=== PATIENT | female | born 1990 | race Caucasian/White ===

== ENCOUNTER 2018-06-21 05:48 | Inpatient (IN) ==
[2018-06-21] MEDS ORDERED: CITRIC ACID/SODIUM CITRATE 30 ML CUP PO ONE (05:49)
[2018-06-21] MEDS ORDERED: FAMOTIDINE 20 MG/2 ML VIAL IVP ONE (05:49)
[2018-06-21] MEDS ORDERED: LIDOCAINE W/ SODIUM BICARB 0.5 ML SYR SUBD PRN ×2 (05:49→09:27)
[2018-06-21] MEDS ORDERED: Metoclopramide Inj 10 MG/2 ML VIAL IV ONE (05:49)
[2018-06-21] MEDS ORDERED: CefOXitin Inj 2 GM in Sodium Chloride 0.9% 100 ML IV ONE (05:49)
[2018-06-21] MEDS ORDERED: LIDOCAINE HCL 2 % 10 ML JELLY URO-JECT TOPICAL PRN (05:49)
[2018-06-21] MEDS ORDERED: Oxytocin 20 Units + LR 20 UNIT/1,000 ML BAG IV SCH ×2 (06:00→10:18)
[2018-06-21] MEDS ORDERED: Lactated Ringers 1,000 ML PRIMARY IV SCH (06:00)
[2018-06-21] MEDS: Lactated Ringers 1,000 ML PRIMARY IV ONE ×2 (06:22→06:39)
[2018-06-21 06:27] LABS: Hematocrit [HCT] 39.4 % (37.0-47.0); Hemoglobin [HGB] 13.6 g/dL (12.0-16.0); MEAN CORPUSCULAR HGB CONC 34.5 g/dL (33-37); MEAN PLATELET VOLUME 10.6 FL (7.4-12.2); RED BLOOD COUNT 4.69 10^6/uL (4.20-5.40)
[2018-06-21 06:33] LABS: BLOOD UREA NITROGEN 7 mg/dL (7-22); SERUM ALBUMIN 3.6 g/dL (3.5-4.8)
--- NOTE | 2018-06-21 07:22 | OB.PROGRES ---
Date of Service: 06/21/18 Interval History: The patient is a 27-year-old at 39-2/7 weeks with a history of polycystic ovarian syndrome and presented at her initial OB with a history of taking metformin 500 mg by mouth twice a day secondary to the history of PCOS. The patient had stopped the metformin about a week and a half prior to her new OB visit. The patient was restarted on the metformin. The patient's glucoses have been fastings less than 95 and 2 hour postprandials 120 to 130 for the most part throughout her . The patient also has a BMI that is increased although the patient is 6 foot tall. The patient also developed proteinuria but only had one blood pressure that was elevated with a diastolic of 90. All other blood pressures have been less than 140/90. The patient has been asymptomatic with regard to preeclampsia with no headache. Antepartum testing has been completed secondary to the patient taking metformin 500 mg twice a day but also the proteinuria . Patient also had polyhydramnios with an EARL of 33. The patient had a normal survey ultrasound at 20 weeks but another survey ultrasound-level II-was completed a few weeks ago by maternal medicine secondary to the hydramnios. No abnormalities were noted. It is thought that the patient' s hydramnios is secondary to the polycystic ovarian syndrome/type II diabetes etiology. Additionally, the patient has had estimated weights in the 98th percentile for several weeks now. Ultrasound last week showed EFW to be 10 lbs. 2 oz. and EARL was 21 at that time which was decreased from 33. Maternal medicine had spoken with the patient informing her that the baby's head circumference and BPD was increased and they were concerned about a vaginal delivery. With the EFW being 10 lbs. 2 oz. the patient has elected to have a primary section which I have discussed with the patient secondary to the estimated weight and the patient's diabetes or glucose intolerance. The patient presents today for a primary low transverse section. Patient denies headache. Positive movement, no leak of fluid, no regular contractions. The consent form had been signed previously. 27-year-old at 7-1/2 weeks gestation by an ultrasound last week which showed an IUP at 6 weeks. The patient has not had bleeding. The patient presents for evaluation for her new OB. The patient has a history of polycystic ovarian syndrome and was taking metformin 500 mg by mouth twice a day and stopped this when she found out she was a week and half ago. Past medical history significant for polycystic ovarian syndrome and insulin resistance but her glucoses were okay. Patient stated that the metformin did help her to lose some weight and to allow her menses to become more regular. Patient has a history of menarche at age 11 and a history of irregular menses until she was placed on metformin. No history of abnormal Pap smears with her last Pap smear several years ago. No STI history. No history of herpes. The patient stated that she stop metformin when she found out she was and has gained about 20 pounds since she stopped the metformin. The patient did notice some hives on her leg last night in her arm. Positive pruritus. No history of hives. Past surgical history significant for tonsillectomy and foot surgery x3 No known drug allergies Tobacco-patient spoke for 3 months but then stopped when she found out she was . Occasional alcohol but none since she found out she was . No drugs. OB history-patient is a now. The patient did not think that she could conceive secondary to her PCO S with irregular menses. Family history with mother having a hysterectomy and BSO at age 38 for precancerous ovarian cysts. Objective - Cervical Exam Heart Rate Interpretation Category: Category I - Labs CBC and BMP: 06/21/18 06:18 06/21/18 06:18 - Vital Signs Last Taken Vital Signs: Vital Signs - Last Taken Temperature 98.0 F 06/21/18 06:25 Pulse Rate 94 06/21/18 06:25 Respiratory Rate 18 06/21/18 06:25 Blood Pressure 126/76 06/21/18 06:56 Pulse Ox 96 06/21/18 06:25 - Additional Details Additional Details: Lungs clear to auscultation Heart regular rate and rhythm Abdomen is gravid with size greater than dates. Extremity with edema bilaterally 1+ to 2+ Reflexes were 1+ to 2+ bilaterally patellar Assessment and Plan - Assessment / Plan Additional Assessment/Plan Details: Assessment: IUP 39-2/7 weeks Estimated weight 10 lbs. 2 oz. Proteinuria with normal blood pressures except for one elevated blood pressure in the emergency room when she was seen for a tooth abscess. Of note, the patient has not seen a dentist since she was seen in the emergency room a few weeks ago. The patient states that her abscess is improved. Glucoses during her have been normal with fastings less than 95 and 2 hour postprandials less than 120 to 130 History of hydramnios with level II ultrasound not revealing a abnormality Morbid obesity with a BMI of 45. The patient is 6 foot tall. History of tobacco use but patient quit. Group B strep was negative Plan: Primary low transverse section secondary to the estimated weight and the patient's diabetes or glucose intolerance from polycystic ovarian syndrome. EFW was 10 lbs. 2 oz. late last week. The risks, benefits, alternatives and indication of a primary low transverse section were discussed with the patient. The risks, but not limited to , of infection, wound infection, wound seroma, the necessity to open the wound and to heal by secondary intention or a wound VAC, bleeding, hemorrhage, uterine atony, the risk of hysterectomy is low but possible if hemorrhage continues to occur secondary to the size of the and the uterus not jose well, postoperative pain or intraoperative pain, damage to bowel, bladder, nerve, vessel, nicking the baby, blood clots to the legs or lungs, the need to transfer the patient to a tertiary care center for severe infection, and the low risk of were all discussed with the patient. The patient expressed understanding. Also the risk of the baby having glucose instability,' s temperature instability or even respiratory issues were discussed with the patient. Pediatrics is aware. The consent form had been signed previously. The risk and benefits were discussed previously but also today. The plan is to proceed with the section.
[2018-06-21] MEDS ORDERED: MORPHINE SULFATE/PF 10 MG/10 ML AMPULE ONE (07:26)
[2018-06-21] MEDS ORDERED: BUPIVACAINE SPINAL 7.5 MG/1 ML - 2 ML IV ONE (07:29)
--- NOTE | 2018-06-21 07:36 | OB.OP.NOTE ---
Operative Report Surgeon: Bennie Tool Smith: Santiago Kwan MD Anesthesia Type: Regional (With Duramorph) Anesthesia Provider: Taj Begum CRNA Surgery Date: 06/21/18 Preoperative Diagnosis: IUP 39-2/7 weeks. Type II diabetes or glucose intolerance & Polycystic ovarian syndrome taking metformin 500 mg twice a day. Hydramnios. Proteinuria . Estimated weight 98 percentile with 10 lbs. 2 oz. last week. Patient desires primary low transverse section and this was also suggested by myself and maternal medicine secondary to EFW Postoperative Diagnosis: Same Procedure: Primary low transverse section Estimated Blood Loss (mL): 800 Fluids: 1800 mL of LR, some with Pitocin. 120 mL of clear yellow urine during the surgery. Mefoxin 2 g IV prior to surgery. Azithromycin 500 mg IV at the end of surgery after cord clamp Complications: None apparent Findings at Surgery: Nuchal cord 2 easily reduced Male infant with Apgars 7 and 8 Weight was 8 lbs. 13 oz. or 4000 g ABG showed a pH of 7.29 PCO2 of 46 HCO3 of 22 and base excess of -5 Normal uterus Ovaries bilaterally showed slightly enlarged, polycystic ovaries Fallopian tubes appeared normal Indications for the Procedure: The patient is a 27-year-old at 39-2/7 weeks with a history of polycystic ovarian syndrome and presented at her initial OB with a history of taking metformin 500 mg by mouth twice a day secondary to the history of PCOS. The patient had stopped the metformin about a week and a half prior to her new OB visit. The patient was restarted on the metformin. The patient's glucoses have been fastings less than 95 and 2 hour postprandials 120 to 130 for the most part throughout her . The patient also has a BMI that is increased although the patient is 6 foot tall. The patient also developed proteinuria but only had one blood pressure that was elevated with a diastolic of 90. All other blood pressures have been less than 140/90. The patient has been asymptomatic with regard to preeclampsia with no headache. Antepartum testing has been completed secondary to the patient taking metformin 500 mg twice a day but also the proteinuria . Patient also had polyhydramnios with an EARL of 33. The patient had a normal survey ultrasound at 20 weeks but another survey ultrasound-level II-was completed a few weeks ago by maternal medicine secondary to the hydramnios. No abnormalities were noted. It is thought that the patient' s hydramnios is secondary to the polycystic ovarian syndrome/type II diabetes etiology. Additionally, the patient has had estimated weights in the 98th percentile for several weeks now. Ultrasound last week showed EFW to be 10 lbs. 2 oz. and EARL was 21 at that time which was decreased from 33. Maternal medicine had spoken with the patient informing her that the baby's head circumference and BPD was increased and they were concerned about a vaginal delivery. With the EFW being 10 lbs. 2 oz. the patient has elected to have a primary section which I have discussed with the patient secondary to the estimated weight and the patient's diabetes or glucose intolerance. The patient presents today for a primary low transverse section. Patient denies headache. Positive movement, no leak of fluid, no regular contractions. The consent form had been signed previously. Description of Procedure: The patient was taken to the operating room after the risks, benefits, alternatives and indication of a primary low transverse section were discussed with the patient. The risks, but not limited to, of infection, wound infection, wound seroma, the necessity to open the wound and to heal by secondary intention or a wound VAC, bleeding, hemorrhage, uterine atony, the risk of hysterectomy is low but possible if hemorrhage continues to occur secondary to the size of the and the uterus not jose well, postoperative pain or intraoperative pain, damage to bowel, bladder, nerve, vessel, nicking the baby, blood clots to the legs or lungs, the need to transfer the patient to a tertiary care center for severe infection, and the low risk of were all discussed with the patient. The patient expressed understanding. Also the risk of the baby having glucose instability,'s temperature instability or even respiratory issues were discussed with the patient. Pediatrics is aware. The consent form had been signed previously. The risk and benefits were discussed previously but also today. SCDs had been placed on the patient prior to bringing her back to the operating room. The patient was prepped and draped in the usual sterile fashion. A Simmons catheter was placed. The patient was tested and anesthesia was found to be very adequate. A Pfannenstiel skin incision was made and the subcutaneous tissue was then incised with the Bovie. Bleeders were cauterized. The fascia was nicked in the midline and then extended laterally incising the fascia with the Bovie and elevating the fascia off the rectus muscles with the Yankauer using it as a gentle retractor. La Rose clamps were placed on the superior aspect of the fascia and then the fascia was dissected off of the rectus muscles using the Bovie and bluntly. Briana clamps were then removed and placed on the inferior aspect of the fascia and the fascia was dissected off of the rectus muscles inferiorly. The rectus muscles were noted to have a diastases. The peritoneum was identified and then entered superiorly bluntly. The peritoneum was then gently stretched. I then placed my hand intra-abdominally and the long the uterus to the fundus to ensure there were no adhesions present. The Soto retractor was then placed in the usual fashion. The lower uterine segment was identified. A low transverse uterine incision was made in an arc above the bladder. The lower uterine incision was continued until membranes were noted. Membranes were ruptured. Fluid was clear. The uterine incision was then stretched. Bandage scissors were used to extend the uterine incision on the right and left side. I then placed my hand intrauterine along the baby's head to the vertex and then delivered the head atraumatically through the uterine incision. Initially the baby's head was asynclitic but with manipulation, the baby's head was mobilized into a good position. Mouth and nose were bulb suctioned. The baby was in the direct OA presentation. Nuchal cord 2 was easily reduced after delivery of the head. With fundal pressure, the posterior shoulder then anterior shoulder of the was delivered atraumatically. The was then delivered. Delayed cord clamping was allowed for for greater than 30 seconds. The cord was then clamped and cut. The baby was handed off to the waiting nurses and Dr. Matos. A section of cord was obtained for cord gases and then cord blood was obtained. The placenta was then delivered. Trailing membranes were grasped with a ring forcep and Sandi's and gently removed. The placenta would be sent secondary to the diabetes and also the hydramnios. The uterus was then exteriorized and cleared of all clot and debris 3. The uterine incision was examined and then closed with 0 Vicryl suture in a running locking fashion. A second imbricating layer of 0 Vicryl suture was used to allow for hemostasis and for strength of the uterine incision for healing. Hemostasis was allowed for. The uterus and ovaries and tubes were examined. They appeared normal. The ovaries did have several small cysts visualized. This is consistent with polycystic ovarian syndrome. Posterior to the uterus was irrigated and suctioned. The uterine incision was examined again and there was good hemostasis. A few areas along the serosa were bovied for hemostasis. The uterus was placed back into the abdomen. The right gutter was irrigated and then suctioned. The left gutter was irrigated and then suctioned. The uterine incision was then irrigated and suctioned and there appeared to be good hemostasis. The peritoneum was then visualized and closed using 3-0 Vicryl suture in a running fashion superior to inferior. The fascia was then inspected and subfascially there was good hemostasis. The fascia was then closed with 0 Vicryl suture in the usual fashion starting on the patient's left side and then working to just past the midline and then from the patient's right side and meeting up with the suture from the left side and just going past it and then tying the 2 sutures together. The subcutaneous tissue was irrigated. A few areas were bovied for hemostasis. The subcutaneous tissue was then closed with 3-0 Vicryl suture in a running fashion. The skin was closed with Stratafix 3-0 which are starting in the midline and working to the right apex of the skin incision and left apex of the skin incision in the usual fashion. Sponge lap and needle counts were correct 2. Radiofrequency wand was then used to ensure that there were no instruments or lap sponges left intra-abdominally. Silverlon dressing was placed over the incision and then ABD had was used and then paper tape. The patient was brought to the PACU in stable condition. Plan: The patient will recover in her room. Secondary to her BMI, SCDs will be continued but I also may prescribe heparin or Lovenox to prevent DVT or PE just in the postoperative time while she is in the hospital. This would be at least 6 hours later.
[2018-06-21] MEDS ORDERED: ePHEDrine Inj 50 MG/ML AMP ONE (07:58)
[2018-06-21] MEDS ORDERED: PHENYLEPHRINE 10,000 MCG/1 ML VIAL ONE (08:04)
[2018-06-21] MEDS ORDERED: Sodium Chloride 0.9% vial 10 ML ONE (08:04)
[2018-06-21] MEDS ORDERED: ONDANSETRON 4 MG/2 ML VIAL ONE (08:09)
[2018-06-21] MEDS ORDERED: OXYTOCIN 10 UNIT/1 ML ONE (08:14)
[2018-06-21] MEDS ORDERED: KETOROLAC 30 MG/1 ML VIAL ONE (08:50)
[2018-06-21] MEDS ORDERED: Sodium Chloride 0.9% 100 ML IV ONE (09:15)
[2018-06-21] MEDS ORDERED: AZITHROMYCIN 500 MG VIAL IV ONE (09:15)
[2018-06-21] MEDS ORDERED: MISOPROSTOL 200 MCG TABLET RECTAL ONE (09:20)
--- NOTE | 2018-06-21 09:26 | CRNA.PROCE ---
Central Neuraxis Block Placemt - - Safety Measures: Time Out Taken - - Type of Block: Subarachnoid Reason for Block: Surgical Moniters Used During Block: EKG, SPO2, NIBP Positioning: Sitting Skin Prep Used: ChloroPrep Skin Infiltration - Enter Amount Used in Comment Field: 1% Xylocaine (mL): Yes ( skin wheal) Spinal Needle Used: 25 Sarah 80 mm Local Anesthetic - Enter Amount Used in Comment Field: 0.75 % Bupivacaine with Dextrose (ml): Yes (2ml) Additive Used - Enter Amount Used in Comment Field: Preservative Free Morphine ( mg): Yes (.3) Anesthesia Time - Other Weight: 149.685 kg Height: 6 ft Body Mass Index (BMI): 44.7
[2018-06-21] MEDS ORDERED: Prochlorperazine Edisylate Inj 10mg/2ml vial IVP PRN (09:27)
[2018-06-21] MEDS ORDERED: HYDROmorphone 2 MG/1 ML IVP PRN (09:27)
--- NOTE | 2018-06-21 09:27 | CRNA.PROGR ---
Anesthesia Time - Procedure/Recovery Time Start Date: 06/21/18 End Date: 06/21/18 Anesthesia : Time In: 07:48 Anesthesia : Time Out: 09:21 Anesthesia : Total Time: 93 - Total Anesthesia Time Total Anesthesia Time (minutes): 93 - Other Weight: 149.685 kg Height: 6 ft Body Mass Index (BMI): 44.7 Physical Status: P2 Anesthesia Type: Spinal Block Obstetrics: C/S anesthesia only
--- NOTE | 2018-06-21 09:27 | CRNA.PROGR ---
Anesthesia Recovery Phase I - Post Anesthesia Evaluation Patient's Condition on Arrival in Phase I: Stable Pain Level: 0
[2018-06-21] MEDS ORDERED: BUTORPHANOL TARTRATE 2 MG/1 ML VIAL IVP ONE (09:28)
[2018-06-21] MEDS ORDERED: AZITHROMYCIN IV ONE (09:34)
[2018-06-21] MEDS ORDERED: SODIUM CHLORIDE 0.9% IV ONE (09:34)
[2018-06-21] MEDS ORDERED: CALCIUM CARBONATE 500 MG (TUMS) CHEWABLE TABLET PO PRN (10:18)
[2018-06-21] MEDS ORDERED: diphenhydrAMINE 25 MG CAPSULE PO PRN (10:18)
[2018-06-21] MEDS ORDERED: ONDANSETRON 4 MG/2 ML VIAL IVP PRN (10:18)
[2018-06-21] MEDS ORDERED: DIPH,PERTUSS,TET(ADACEL) VAC/PF 0.5 ML (Tdap) IM ONE (10:18)
[2018-06-21] MEDS ORDERED: BUTORPHANOL TARTRATE 2 MG/1 ML VIAL IVP PRN (10:18)
[2018-06-21] MEDS ORDERED: Nalbuphine Inj 20 MG/ML Ampule IVP PRN (10:18)
[2018-06-21] MEDS ORDERED: diphenhydrAMINE 50 MG/1 ML VIAL IV PRN (10:18)
[2018-06-21] MEDS ORDERED: FAMOTIDINE 20 MG/2 ML VIAL IVP PRN (10:18)
[2018-06-21] MEDS ORDERED: LANOLIN HPA 40 GM TUBE TOPICAL PRN (10:18)
[2018-06-21] MEDS ORDERED: KETOROLAC 15 MG/1 ML VIAL IVP SCH (10:18)
[2018-06-21] MEDS ORDERED: Naloxone Inj 0.01 MG, Sodium Chloride 0.9% vial 1 ML IVP PRN ×2 (10:18)
[2018-06-21] MEDS: KETOROLAC 15 MG/1 ML VIAL IVP SCH ×2 (15:00→20:47)
[2018-06-21] MEDS: D5-LR 1,000 ML PRIMARY IV SCH (16:21)
[2018-06-22] MEDS: KETOROLAC 15 MG/1 ML VIAL IVP SCH ×2 (02:42→09:29)
[2018-06-22 05:01] LABS: Hematocrit [HCT] 30.9 % (37.0-47.0); Hemoglobin [HGB] 10.3 g/dL (12.0-16.0); MEAN CORPUSCULAR HEMOGLOBIN 29.1 PG (27-31); MEAN CORPUSCULAR HGB CONC 33.3 g/dL (33-37); MEAN CORPUSCULAR VOLUME 87.3 FL (81-99); MEAN PLATELET VOLUME 10.7 FL (7.4-12.2); RED BLOOD COUNT 3.54 10^6/uL (4.20-5.40)
[2018-06-22 05:07] LABS: BLOOD UREA NITROGEN 9 mg/dL (7-22); SERUM ALBUMIN 2.5 g/dL (3.5-4.8); Uric Acid 5.7 mg/dl (2.5-6.2)
[2018-06-22] MEDS: D5-LR 1,000 ML PRIMARY IV SCH (06:10)
[2018-06-22] MEDS: ENOXAPARIN SODIUM 40 MG/0.4 ML SYRINGE SUBCUT SCH (07:42)
--- NOTE | 2018-06-22 08:32 | OB.PROGRES ---
Subjective Post Day: 1 Pain Management: IV Toradol Simmons Catheter: Yes Lochia Color: Rubra/Red Small 10-25 ml Diet: Regular Feeding Method: Exculsively Ambulating: Yes Concerns / Additional Information: The patient states that she is doing well. Positive flatus. Mom is breast- feeding exclusively currently. Her babies glucoses are much improved. Patient is tolerating a regular diet. Objective - General General Appearance: POSITIVE: No Acute Distress, Cooperative - Cardiovacular Cardiovascular Exam: POSITIVE: RRR Edema: +1 Pedal Edema Extremities: Negative Adore's - Bilaterally - Respiratory Respiratory Exam: POSITIVE: Clear to Auscultation - Bilaterally - Abdomen Bowel Sounds: Present Abdominal Wound Assessment: Silverlone Dressing Other Abdominal Exam Details: Abdomen is soft and appropriately tender. No guarding or rebound. Assesstment / Plan Assessment / Plan: Assessment: Postoperative day #1 status post primary low transverse section. Patient is doing well. Labs are normal. H&H is 10 and 30. Glucose this morning was 88. History of polycystic ovarian syndrome with patient taking that form and 500 mg twice a day for insulin resistance. Patient did not receive dose of metformin last night and glucose good this morning. 88. History of proteinuria and hydramnios. Blood pressures are normal. Patient also afebrile. Baby's weight was 8 lbs. 13 oz. and initially had some low glucoses but now glucoses have normalized. Plan: Patient received DVT prophylactic dose of Lovenox-40 mg subcutaneous-this morning since BMI is greater than 40. Patient is 6 foot tall but meets the criteria of BMI greater than 40. I contacted the patient's nurse last evening just 12 hours from surgery and the patient was still having some heavier bleeding. Therefore I did not prescribe the Lovenox last evening at 12 hours postop. I called this morning at 0530 hrs. and the patient's bleeding had improved and normal per nurse. Therefore I prescribed the Lovenox at 0530 hrs. this morning to be given subcutaneously. This will be administered daily. SCDs will also be used when the patient is in bed. Patient will ambulate at least 4 times today. Simmons catheter will be discontinued Continue to observe the patient closely
[2018-06-22] MEDS: Senna/Docusate Tab 1 TAB TAB PO SCH ×2 (09:28→20:40)
[2018-06-22] MEDS: oxyCODONE-ACETAMINOPHEN 5-325 TAB PO PRN ×2 (09:28→15:56)
[2018-06-22] MEDS: Prenatal Multivitamin Tab 1 TAB TAB PO SCH (09:29)
[2018-06-22] MEDS: IBUPROFEN 800 MG TABLET PO PRN ×2 (15:57→22:37)
[2018-06-23] MEDS: oxyCODONE-ACETAMINOPHEN 5-325 TAB PO PRN ×4 (01:12→20:52)
[2018-06-23 06:36] VITALS: RESP 18
[2018-06-23] MEDS: IBUPROFEN 800 MG TABLET PO PRN ×2 (06:37→16:17)
[2018-06-23] MEDS: Prenatal Multivitamin Tab 1 TAB TAB PO SCH (08:19)
[2018-06-23] MEDS: Senna/Docusate Tab 1 TAB TAB PO SCH ×2 (08:19→20:58)
[2018-06-23] MEDS: ENOXAPARIN SODIUM 40 MG/0.4 ML SYRINGE SUBCUT SCH (08:23)
--- NOTE | 2018-06-23 10:56 | OB.PROGRES ---
Subjective Post Day: 2 Pain Management: PO Simmons Catheter: No Flatus: Yes Lochia Color: Serosa/Brown Small 10-25 ml Diet: Regular [place] Feeding Method: Exculsively Ambulating: Yes Concerns / Additional Information: The patient's eats that she thinks she over did it yesterday with not enough pain medication since she was feeling so well and to much activity and today she does not feel as well and hurts more. The patient states that she does not believe that she is getting an infection but just has more pain. No fever or chills. The patient does have some left lower quadrant discomfort in one place and noticed some irritation of her skin where the tape was yesterday. Objective - General General Appearance: POSITIVE: No Acute Distress, Cooperative (Nontoxic appearing ) - Cardiovacular Cardiovascular Exam: POSITIVE: RRR Edema: +1 Pedal Edema Extremities: Negative Adore's - Bilaterally - Respiratory Respiratory Exam: POSITIVE: Clear to Auscultation - Bilaterally - Abdomen Abdominal Wound Assessment: Silverlone Dressing Other Abdominal Exam Details: The patient has some point tenderness in the left lower quadrant where the suture for the fascial angle suture might be. Also there is some skin irritation or ulceration in the right lower quadrant where the paper tape was. This is about 8 mm to 10 mm in size. The patient's abdomen is soft without guarding or rebound. Assesstment / Plan Assessment / Plan: Assessment: Postoperative day #2 status post primary low transverse section The patient is afebrile and pulse is normal and blood pressures are normal. The patient just does not feel as well today as she did yesterday and the patient believes she overdid it. I saw her briefly several times yesterday and she was always up and around and feeling well so she may have overdone it yesterday. The patient is afebrile. The patient's abdominal exam is soft without guarding or rebound. Plan: Ibuprofen 800 mg 3 times a day Oxycodone/Tylenol-the patient is taking 1 tablet every 4 hours. The patient should continue this. I can increase the milligrams dosage of oxycodone but the patient states she does not like the feeling that she gets after she takes the oxycodone. She does not want to take hydrocodone because hydrocodone makes her nauseated. Ambulate just 4 times today. SCDs while she is in in her bed. Continue Lovenox 40 mg once per day Will not discharge patient today. Patient agrees. We'll continue to observe.
[2018-06-23] MEDS ORDERED: AMOXICILLIN 500 MG CAPSULE PO SCH (16:00)
--- NOTE | 2018-06-23 16:12 | OB.PROGRES ---
Subjective Post Day: 2 Assesstment / Plan Assessment / Plan: The patient is doing better this afternoon after she got some sleep. Her pain control is better. However, the patient believes that her tooth abscess is worsening. I placed the patient on Augmentin 875 mg by mouth twice a day and we gave the patient the phone number and address of a walk-in dentist in [place], [place]. The patient needs to see a dentist for evaluation. The patient expressed understanding. Patient is afebrile.
[2018-06-23] MEDS: Amoxicill/Clav 875/125mg Tab 1 TAB TAB PO SCH (16:17)
[2018-06-24] MEDS: IBUPROFEN 800 MG TABLET PO PRN ×2 (00:27→10:04)
[2018-06-24] MEDS: Amoxicill/Clav 875/125mg Tab 1 TAB TAB PO SCH (06:51)
[2018-06-24] MEDS: oxyCODONE-ACETAMINOPHEN 5-325 TAB PO PRN (06:52)
--- NOTE | 2018-06-24 08:00 | OB.PROGRES ---
Subjective Post Day: 3 Pain Management: PO Simmons Catheter: No Flatus: Yes Lochia Color: Serosa/Brown Small 10-25 ml Diet: Regular Feeding Method: Exculsively Ambulating: Yes Concerns / Additional Information: The patient states that she is slightly tired today and still has some pain but is feeling much better than yesterday morning. Patient also states that her tooth is feeling a little bit better now that she was started on antibiotics. The patient also states that she will see a dentist. Objective - General General Appearance: POSITIVE: No Acute Distress, Cooperative - Cardiovacular Cardiovascular Exam: POSITIVE: RRR Edema: +1 Pedal Edema Extremities: Negative Adore's - Bilaterally - Respiratory Respiratory Exam: POSITIVE: Clear to Auscultation - Bilaterally - Abdomen Bowel Sounds: Present Abdominal Wound Assessment: Silverlone Dressing, Well Approximated - Fundus/Lochia/Perineum Other Exam Details: Abdomen is soft without guarding or rebound. The patient does have decreased tenderness in the left lower quadrant compared to yesterday morning. No uterine tenderness. Assesstment / Plan Assessment / Plan: Assessment: Postoperative day #3 status post primary low transverse section. The patient is doing well. Afebrile. Blood pressure is normal. And patient is feeling much better today than she was yesterday morning. The patient states that the pain medicine is helping to control her pain. The patient does have an abdominal pannus and the patient and I have discussed that she is at increased risk for wound issues and for seroma and 4 the possibility of having to open the wound if she develops an infection or a seroma. The patient also probably has a tooth abscess with a fractured tooth. The patient was seen in the emergency room couple weeks ago and was placed on amoxicillin and then I just started her on Augmentin yesterday when the patient started complaining about pain again. Plan: The patient would like to be discharged home today and I believe the patient is doing much better and will go home. The patient was given the phone number and location of a dentist that excepts walkins in [place], [place]. The patient may also see a dentist here in [place], [place]. But, the patient needs to see a dentist. The patient should follow up next week-early next week-for incision check. Discharge medications: Ibuprofen 800 mg 1 tablet by mouth 3 times a day for the next 5 days then 3 times a day as needed. Colace 100 mg capsule 1 capsule daily to twice a day when necessary constipation Ferrous sulfate 325 mg 1 tablet by mouth daily Oxycodone/Tylenol 5/325 one to 2 tablets by mouth every 6 hours when necessary pain #30 were dispensed and no refills Promethazine 25 mg one half tablet to one tablet every 6-8 hours when necessary nausea Usual postoperative instructions will be discussed with the patient and the nurse. depression signs and symptoms will be discussed with the patient by the nurse. The patient should return for fever, increase in abdominal pain, wound drainage , signs or symptoms of depression, or just not feeling well.
[2018-06-24 08:12] VITALS: BP 133/81; TEMP 98; O2SAT 97
--- NOTE | 2018-06-24 09:13 | OB.PROGRES ---
Assesstment / Plan Assessment / Plan: Silverlon dressing was removed. All Steri-Strips removed. Incision was clean and dry. New one half inch Steri-Strips placed. New Silverlon dressing placed.
[2018-06-24] MEDS: Prenatal Multivitamin Tab 1 TAB TAB PO SCH (10:04)
[2018-06-24] MEDS: Senna/Docusate Tab 1 TAB TAB PO SCH (10:05)
[2018-06-24] MEDS: ENOXAPARIN SODIUM 40 MG/0.4 ML SYRINGE SUBCUT SCH (10:17)
== END 2018-06-24 11:52 | disposition home or self-care (01) | DRG 765 ==
LOC: OBOR 05:48 → OBIP 09:50
PROVIDERS: ADMIT Obstetrics & Gynecology; ATTEND Obstetrics & Gynecology

== ENCOUNTER 2019-04-23 09:18 | Observation (INO) ==
[2019-04-23] MEDS ORDERED: Sodium Chloride 0.9% 1,000 ML PRIMARY IV ONE (09:36)
[2019-04-23 09:53] LABS: BASOPHILS # (AUTO) 0.02 10*3/UL; BASOPHILS % (AUTO) 0.3 % (0-1); EOSINOPHILS # (AUTO) 0.17 10*3/UL; EOSINOPHILS % (AUTO) 2.4 % (0-8); Hematocrit [HCT] 45.5 % (37.0-47.0); Hemoglobin [HGB] 15.5 g/dL (12.0-16.0); LYMPHOCYTES # (AUTO) 1.98 10*3/uL; MEAN CORPUSCULAR HGB CONC 34.1 g/dL (33-37); MEAN CORPUSCULAR VOLUME 88.5 FL (81-99); MEAN PLATELET VOLUME 10.4 FL (7.4-12.2); MONOCYTES # (AUTO) 0.36 10*3/UL (0.3-0.8); MONOCYTES % (AUTO) 5.1 % (5-15); NEUTROPHILS # (AUTO) 4.55 10*3/UL; RED BLOOD COUNT 5.14 10^6/uL (4.20-5.40)
[2019-04-23 09:54] LABS: PLATELET MORPHOLOGY COMMENT NORMAL MORPHOLOGY (NORM); RBC MORPHOLOGY COMMENT NORMAL MORPHOLOGY (NORM); WBC MORPHOLOGY COMMENT NORMAL MORPHOLOGY (NORM)
[2019-04-23 10:03] LABS: BLOOD UREA NITROGEN 12 mg/dL (7-22); BUN/CREATININE RATIO 17.14 (6-20)
[2019-04-23 10:20] LABS: BILIRUBIN,URINE NEGATIVE (NEG); CLARITY,URINE CLEAR (CLEAR); COLOR,URINE YELLOW (Y); GLUCOSE, URINE (UA) NEGATIVE (NEG); OCCULT BLOOD,URINE NEGATIVE (NEG); PH,URINE 6.5 (5.0-8.5); PROTEIN,URINE NEGATIVE (NEG); UROBILINOGEN,URINE 0.2 EU/dL (0.2)
[2019-04-23 10:22] LABS: URINE SAMPLE TYPE CLEAN CATCH URINE
[2019-04-23] MEDS ORDERED: ONDANSETRON 4 MG/2 ML VIAL IVP ONE (10:41)
--- NOTE | 2019-04-23 10:54 | DI ---
EXAM: CT Abdomen and Pelvis With Intravenous Contrast CLINICAL HISTORY: Abdominal Pain TECHNIQUE: Axial computed tomography images of the abdomen and pelvis with intravenous contrast. Coronal and sagittal reformatted images were created and reviewed. COMPARISON: No relevant prior studies available. FINDINGS: Lung bases: Unremarkable. No consolidation. No effusions. ABDOMEN: Liver: Diffusely hypodense liver, suggesting fatty infiltration. Gallbladder and bile ducts: Unremarkable. No calcified stones. No ductal dilation. Pancreas: Unremarkable. No mass. No ductal dilation. Spleen: Splenomegaly, with maximum diameter of 13.9 cm. Adrenals: Unremarkable. No mass. Kidneys and ureters: Unremarkable. No solid mass. No hydronephrosis. Stomach and bowel: Unremarkable. No obstruction. No mucosal thickening. PELVIS: Appendix: Findings suggesting an early uncomplicated acute appendicitis, with thickening of the distal appendix to 8.5 mm with mild adjacent inflammatory stranding. Bladder: Unremarkable. No visible stones. Reproductive: Bilateral simple-appearing hypodense ovarian cysts, largest measuring 3.9 cm in the left ovary. The uterus is retroverted/retroflexed, otherwise appears unremarkable. ABDOMEN and PELVIS: Intraperitoneal space: Unremarkable. No free air. No significant fluid collection. Bones/joints: No acute fracture. No dislocation. Soft tissues: Small fat-containing paraumbilical hernia. Vasculature: Unremarkable. No abdominal aortic aneurysm. Lymph nodes: Unremarkable. No enlarged lymph nodes. IMPRESSION: 1. Findings suggesting an early uncomplicated acute appendicitis, with thickening of the distal appendix to 8.5 mm with mild adjacent inflammatory stranding. No adjacent free air or fluid collection. Appendix is retrocecal. 2. Diffusely hypodense liver, suggesting fatty infiltration. 3. Splenomegaly, with maximum diameter of 13.9 cm. 4. Bilateral simple-appearing ovarian cysts, largest measuring 3.9 cm in the left ovary. These are likely physiologic. <MYCVCSECTION> [employer] 04/23/19 10:56 Call Doctor Regarding Appendicitis, called Dr. Jayjay Garzon on 04/23 10:55 (-06:00)
--- NOTE | 2019-04-23 12:37 | PDOC ---
Abdomen/Flank HPI - General Chief Complaint: Abdomen Pain Stated Complaint: RLQ PAIN Date Seen by Provider: 04/23/19 Time Seen by Provider: 09:25 Source: POSITIVE: Patient Exam Limitations: POSITIVE: No limitations Nurse's Notes Reviewed & Considered: Yes - History of Present Illness Initial Comments: The patient is a 28-year-old female. She states that since around 6 AM this morning, 3-1/2 hours SHOT MAN, she has had right lower quadrant abdominal pain, which has gotten progressively worse. She also has some discomfort over the right paraumbilical area. She's not had any previous similar episodes. She last ate around 10 hours ago. Last menstrual period was in mid February. She is 1 para 1 aborta 0. She's not had any abdominal surgery except for section. No known fevers. She's had some nausea. No vomiting. She states she's had some constipation lately. No melena, hematochezia, hematemesis, dysuria or hematuria. Body Location Affected: REPORTS: Abdomen Timing: REPORTS: Gradual, Getting Worse Duration: 4-6 hours (Approximately 3-4 hours) Severity: Moderate Quality: REPORTS: "Pain" Abdominal Pain Onset Location: REPORTS: RLQ, Periumbilical (Right paraumbilical area) Abdominal Pain Radiation: REPORTS: No radiation Context: REPORTS: None Modifying Factors: improves with: Movement Associated Symptoms: REPORTS: Denies symptoms Similar Symptoms Previously: No Recent Care Received: REPORTS: Denies Any Prior Injuries Related to Current Complaint?: No - Patient Home Medications Home Medications: Home Medications metformin 500 mg tablet 500 mg PO BID #60 tab 11/26/17 - Patient Allergies Allergies/Adverse Reactions: Allergies Allergy/AdvReac Type Severity Reaction Status Date / Time No Known Allergies Allergy Verified 04/23/19 09:27 Past Medical History - heen HEENT History: Denies History Cardiovascular History: Denies History Respiratory History: Denies History Gastrointestinal History: Denies History Genitourinary History: Denies History Endocrine History: Gestational Diabetes, Other (please comment) Additional Endocrine History: TAKES METFORMIN FOR PCOS Musculoskeletal History: Denies History Prosthesis or Implant: No Additional Musculoskeletal History: RIGHT FOOT ORIF. METAL PLACED THEN REMOVED (SURGERY X 3) Neurological History: Denies History Blood Disorders: Denies History Psychiatric History: Denies History History of Sexually Transmitted Diseases: No Additional Female Reproductive History: POLYCYSTIC OVARIAN SYNDROME Obstetrical History: Delivery Cancer History: Denies History In Past Year Been Physically Harmed or Verbally Threatened: No History of MDRO: No History of Other Communicable Diseases: No Tobacco Use: Former Smoker Alcohol Use: None In the Past 12 Months, Have Used or Abuse Any Substance: None Previous Surgical History: Yes Type / Date of Surgery: TONSILLECTOMY/ RIGHT FOOT ORIF X3 Anesthesia Reactions: Yes (PONV) Malignant Hyperthermia: No Significant Family History: Heart disease Past Medical History Reviewed: Reviewed - No Changes ROS - Limitations ROS Limitations: No Limitations Constitution: REPORTS: Denies Symptoms Cardiovascular: REPORTS: Denies Cardiac Symptoms Respiratory: REPORTS: Denies Resp Symptoms Neurological: REPORTS: Denies Neuro Symptoms Gastrointestinal: REPORTS: Abdominal Pain (Right lower quadrant), Nausea Endocrine: REPORTS: Denies Symptoms Musculoskeletal: REPORTS: Denies MS Symptoms Genitourinary: REPORTS: Denies Symptoms Eyes: REPORTS: Denies Symptoms ENT: REPORTS: Denies Symptoms Skin: REPORTS: Denies Skin Symptoms Lympathic: REPORTS: Denies Lympathic Symptoms Immunologic: POSITIVE: Denies Symptoms Psychiatric: POSITIVE: Denies Psych Symptoms Abdominal/Flank Pain PE - General Appearance General Appearance: POSITIVE: Alert, Cooperative, No Acute Distress, No Evidence of Trauma - HEENT HEENT: POSITIVE: Head Inspection Nml, Eyes Inspection Nml, Ears Inspection Nml, Nose Inspection Nml, Oral/Dental Inspect. Nml, Pharynx Inspect. Nml, PERRL, EOMI - Neck Neck: POSITIVE: Normal Inspection, No Apparent Injury - Respiratory Respiratory: POSITIVE: No Respiratory Distress, Breath Sounds Normal, Chest Non-Tender - Cardiovascular Cardiovascular: POSITIVE: Regular Rate and Rhythm, Heart Sounds Normal, Equal Pulses, Strong Pulses Peripheral Pulses: Radial (R): 2+, Radial (L): 2+ - Chest Chest: POSITIVE: Non Tender - Abdomen Abdomen: Soft: (All Quadrants), Normal Bowel Sounds: (All Quadrants), Denies Tenderness: (RUQ), (LUQ), (LLQ), No Splenomegaly: (All Quadrants), No Hepatomegaly: (All Quadrants), No Guarding: (All Quadrants), No Rebound: (All Quadrants), No Palpable Pulse: (All Quadrants), No Palpabale Mass: (All Quadrants), No Distention: (All Quadrants), No Rigidity: (All Quadrants), Tenderness Noted: (RLQ) Additional Abdominal Details: Abdominal examination shows bowel sounds to be active. Patient complains of discomfort on direct palpation right lower quadrant, without masses, organomegaly or rebound. - Back Back: POSITIVE: Normal Inspection. NEGATIVE: CVA Tenderness (R), CVA Tenderness (L) - Skin Skin: POSITIVE: Intact, Normal For Race, Warm, Dry, No Rash - Extremities Extremity: Non-Tender: (All Extremities), Normal ROM: (All Extremities), Normal Inspection: (All Extremities) - Neurological Neurological: POSITIVE: Affect Apporpriate, Oriented X3, press helper Normal As Tested, Motor Normal, Sensation Normal - Psychological Psychiatric: POSITIVE: Affect Appropriate, Mood Appropriate Images - Complete Complete: 1 - Area described abdominal pain Abdomen Progress - Results Reviewed by me Xrays/CTs/US Reviewed by me: Yes Discussed with Radiologist: Yes Radiology Findings: CT scan abdomen and pelvis with IV contrast read by radiologist as showing D appendix to be somewhat enlarged at 8 mm with some para appendiceal stranding, compatible with appendicitis. Lab Results Reviewed by Me: Yes CBC and BMP: 04/23/19 09:50 04/23/19 09:50 Lab Results:: Laboratory Results 04/23/19 04/23/19 04/23/19 09:50 09:50 09:50 WBC 7.10 RBC 5.14 Hgb 15.5 Hct 45.5 MCV 88.5 MCH 30.2 MCHC 34.1 RDW Std Deviation 41.5 RDW Coeff of Quan 13.1 Plt Count 196 MPV 10.4 Immature Gran % (Auto) 0.3 Neut % (Auto) 64.0 Lymph % (Auto) 27.9 Rolette % (Auto) 5.1 Eos % (Auto) 2.4 Baso % (Auto) 0.3 Immature Gran # (Auto) 0.02 Neut # (Auto) 4.55 Lymph # (Auto) 1.98 Rolette # (Auto) 0.36 Eos # (Auto) 0.17 Baso # (Auto) 0.02 WBC Morphology Comment Normal morphology Plt Morphology Comment Normal morphology RBC Morph Comment Normal morphology Sodium 143 Potassium 4.2 Chloride 109 Carbon Dioxide 26 Anion Gap 8 BUN 12 Creatinine 0.7 Estimated GFR > 60 BUN/Creatinine Ratio 17.14 Glucose 114 H Calculated Osmolality 296.0 H Calcium 9.2 Total Bilirubin 0.3 AST 59 H ALT 112 H Alkaline Phosphatase 80 Total Protein 7.0 Albumin 4.0 Globulin 3.0 Albumin/Globulin Ratio 1.30 Amylase 57 Lipase 156 Serum HCG, Qual Negative Ur Collection Type Urine Color Urine Clarity Urine pH Ur Specific [place] Urine Protein Urine Glucose (UA) Urine Ketones Urine Occult Blood Urine Nitrate Urine Bilirubin Urine Urobilinogen Ur Leukocyte Esterase Ur Culture Indicated? 04/23/19 10:12 WBC RBC Hgb Hct MCV MCH MCHC RDW Std Deviation RDW Coeff of Quan Plt Count MPV Immature Gran % (Auto) Neut % (Auto) Lymph % (Auto) Rolette % (Auto) Eos % (Auto) Baso % (Auto) Immature Gran # (Auto) Neut # (Auto) Lymph # (Auto) Rolette # (Auto) Eos # (Auto) Baso # (Auto) WBC Morphology Comment Plt Morphology Comment RBC Morph Comment Sodium Potassium Chloride Carbon Dioxide Anion Gap BUN Creatinine Estimated GFR BUN/Creatinine Ratio Glucose Calculated Osmolality Calcium Total Bilirubin AST ALT Alkaline Phosphatase Total Protein Albumin Globulin Albumin/Globulin Ratio Amylase Lipase Serum HCG, Qual Ur Collection Type Clean catch urine Urine Color Yellow Urine Clarity Clear Urine pH 6.5 Ur Specific [place] 1.015 Urine Protein Negative Urine Glucose (UA) Negative Urine Ketones Negative Urine Occult Blood Negative Urine Nitrate Negative Urine Bilirubin Negative Urine Urobilinogen 0.2 Ur Leukocyte Esterase Negative Ur Culture Indicated? Culture not set - Patient's Progress Pain Medication Addressed: POSITIVE: Patient Refused School/Work Release Addressed: POSITIVE: Not Applicable Re-examine Time: 11:10 Re-Examine Comment: Diagnosis of appendicitis discussed with patient. Dr. Matthew, surgeon, contacted, who will come to the emergency room to further evaluate and treat. Patient given 4 mg of Zofran IV and a liter of normal saline. She declines any analgesia. Status: POSITIVE: Unchanged, Re-Examined - Consult Consult (If Yes, Name of Consulting MD & Time Called): Yes (Dr. Matthew, surgeon, [id number]) Consulting MD will see pt:: POSITIVE: [facility] [facility] Admit Counseled: POSITIVE: Patient Patient Care Time - Estimated PCT Patient Care Time (In Minutes): 45 Vital Signs - Recent Vital Signs Vital Signs: Vital Signs (Last 8 hours) Temp Pulse Resp BP Pulse Ox 04/23/19 10:05 97 F 73 16 132/91 91 - VS Reviewed Vital Signs Reviewed: Yes Discharge Clinical Impression: Appendicitis Discharge Disposition: Admit to Inpatient Condition: Stable Patient Problem(s) Reviewed: Yes Follow Up With: SCAR CARTAGENA [Primary Care Provider] - Date Decision to Admit to Inpatient: 04/23/19 Time Decision to Admit to Inpatient: 11:00
[2019-04-23] MEDS ORDERED: MIDAZOLAM 5 MG/1 ML ONE (12:47)
[2019-04-23] MEDS ORDERED: HYDROmorphone 2 MG/1 ML ONE (12:47)
[2019-04-23] MEDS ORDERED: KETAMINE 100 MG/1 ML - 5 ML ONE (12:47)
[2019-04-23] MEDS ORDERED: fentaNYL Inj 250 MCG/5 ML VIAL ONE (12:47)
[2019-04-23] MEDS ORDERED: ROCURONIUM 10 MG/1 ML - 5 ML VIAL IVP ONE ×2 (12:49→13:51)
[2019-04-23] MEDS ORDERED: SUCCINYLCHOLINE CHLORIDE 20 MG/1 ML - 10 ML ONE (12:49)
[2019-04-23] MEDS ORDERED: PROPOFOL 10 MG/1 ML (200 MG/20 ML) VIAL IV ONE (12:52)
[2019-04-23] MEDS ORDERED: LIDOCAINE MPF 2% - 5 ML (20 MG/1 ML) ONE (12:52)
[2019-04-23] MEDS ORDERED: DEXAMETHASONE PF 10 MG/1 ML VIAL ONE (12:52)
[2019-04-23] MEDS ORDERED: KETOROLAC 30 MG/1 ML VIAL ONE (12:52)
--- NOTE | 2019-04-23 12:53 | CONSULT ---
Consult Note - Consult Consult Date: 04/23/19 Reason for Consult: PreOp Consulation : General Surgery Requesting Physician: Dr. Garzon Primary Care Provider: SCAR CARTAGENA - History of Present Illness History of Present Illness: The patient is a 28-year-old female I'm asked to see in the emergency room for diagnosis of acute appendicitis. Patient is a 6 foot tall 333.4 pound female who reports she awoke at 7 AM with central abdominal pain which has moved to the right lower quadrant. She actual ly said her stomach was somewhat upset last evening and that she didn't sleep well. She describes the pain in her right lower quadrant as sharp. It is progressive. It increases with movement or laughing. She's had nausea without vomiting. She's had some constipation. She's never had a pain like this before. She's had no fever or chills. She's only had a prior . Her white count is normal at 7100. CT scan shows a dilated distal appendix at 8.5 mm with periappendiceal stranding. The appendix is in a retrocecal location. It is consistent with acute appendicitis. Her test is negative. Her urinalysis is unremarkable. Her AST and ALT are elevated consistent with fatty infiltration of the liver, most likely. She last ate around midnight. It was a package of crackers. Review of Systems - Gastrointestinal Gastrointestinal / Abdominal: REPORTS: Nausea, Constipation, Abdominal Pain, See HPI Past Medical History Medical History: #1 morbid obesity. #2 polycystic ovarian syndrome. #3 insulin resistance. Surgical History: #1 section. #2 right foot surgery 3. #3 tonsillectomy Tobacco Use: Former Smoker In the Past 12 Months, Have Used or Abuse Any of the Following Substance: None Alcohol Use: None Medication / Allergies Home Medications: Home Medications Medication Instructions Recorded Confirmed metformin 500 mg tablet 500 mg PO BID #60 tab 11/26/17 04/23/19 Allergies/Adverse Reactions: Allergies Allergy/AdvReac Type Severity Reaction Status Date / Time No Known Allergies Allergy Verified 04/23/19 09:27 Results - Labs CBC and BMP: 04/23/19 09:50 04/23/19 09:50 - Imaging Status: Image Reviewed by Me, Report Reviewed by Me Exam - Vitals Vital Signs: Vital Signs Temperature 97 F Temperature Source Temporal Artery Scan Pulse Rate [Pulse Oximeter] 73 Respiratory Rate 16 Blood Pressure [Left Arm] 132/91 Pulse Ox 91 Oxygen Delivery Method Room Air Height 6 ft Weight 320 lb - General General Appearance: Mild Distress, Morbidly Obese - Eye Eye Exam: POSITIVE: No Scleral Icterus - Respiratory Respiratory Exam: POSITIVE: Clear to Auscultation - Bilaterally, Breathing Non Labored - Cardiovascular Cardiovascular Exam: POSITIVE: RRR, No Murmur - GI/Abdominal GI/Abdominal Exam: POSITIVE: Normal Bowel Sounds, Soft, Guarding, No Masses, Rebound Additional GI/Abdominal Exam Details: Right lower quadrant abdominal pain with guarding and rebound. Positive road signs. Pain is most above her right iliac crest. It is a bit higher than usual consistent with the findings on CT scan. No costovertebral angle tenderness. - Rectal Rectal Exam: POSITIVE: Deferred - Neurological Neurological Exam: POSITIVE: Alert, Oriented x 3 - Psychiatric Psychiatric Exam: POSITIVE: Normal Affect, Normal Mood Assessment and Plan - Patient Problems (1) Acute appendicitis Current Visit: Yes Status: Acute Priority: High Onset Date: 04/23/19 Comment: History, physical exam, and CT scan consistent with acute appendicitis. Appendix is retrocecal. Patient is morbidly obese. We'll proceed with open appendectomy. The procedure has been discussed with the patient in complete yet simple terms including benefits, risks, and alternatives. All questions have been answered. Informed consent has been obtained. We did discuss the possibility of antibiotic treatment for early appendicitis. Patient does not want to take the chance that this will get worse, nor do I. I think the safest course of action is to proceed with appendectomy as soon as possible. Code(s): K35.80 - Unspecified acute appendicitis
[2019-04-23] MEDS ORDERED: Lactated Ringers 1,000 ML PRIMARY IV SCH (12:55)
[2019-04-23] MEDS ORDERED: Ertapenem Inj 1 GM in Sodium Chloride 0.9% 100 ML IV SCH (12:55)
[2019-04-23] MEDS ORDERED: Nasal Sanitizer POPSWAB ampule 3 AMP (Nozin) PREOP DOSE ENOS SCH (12:55)
[2019-04-23] MEDS ORDERED: Sodium Chloride 0.9% 100 ML IV ONE (12:59)
[2019-04-23] MEDS ORDERED: ERTAPENEM 1 GM VIAL ONE (12:59)
[2019-04-23] MEDS ORDERED: Lactated Ringers 1,000 ML PRIMARY IV ONE ×2 (12:59→15:21)
[2019-04-23] MEDS ORDERED: FAMOTIDINE 20 MG/2 ML VIAL IVP ONE (13:06)
[2019-04-23] MEDS ORDERED: CITRIC ACID/SODIUM CITRATE 30 ML CUP PO ONE (13:07)
[2019-04-23] MEDS ORDERED: BUPIVACAINE 0.25% W/ EPI - 10 ML VIAL ONE ×2 (13:12→14:12)
[2019-04-23] MEDS ORDERED: fentaNYL Inj 100 MCG/2 ML VIAL ONE ×2 (13:18→15:14)
[2019-04-23] MEDS ORDERED: SCOPOLAMINE HYDROBROMIDE 1.5 MG - 1 EACH PATCH TRANSDERM ONE (13:20)
[2019-04-23] MEDS ORDERED: Acetaminophen 1000mg Inj 1,000 MG/100 ML VIAL IV ONE (13:52)
[2019-04-23] MEDS ORDERED: ALBUTEROL SULFATE 8.5 GM HFA INHALER INH ONE (14:04)
[2019-04-23] MEDS ORDERED: NEOSTIGMINE 1 MG/1 ML - 10 ML ONE (14:29)
[2019-04-23] MEDS ORDERED: GLYCOPYRROLATE 0.2 MG/1 ML VIAL ONE (14:29)
[2019-04-23] MEDS ORDERED: NALOXONE 0.4 MG/1 ML VIAL ONE (14:54)
--- NOTE | 2019-04-23 15:01 | GEN.OPNOTE ---
Operative Note Surgery Date: 04/23/19 Preoperative Diagnosis: Acute appendicitis. Postoperative Diagnosis: acute appendicitis. Procedure: Open appendectomy. Surgeon: Bradford Matthew MD Anesthesia Provider: Pat Polanco CRNA Anesthesia Type: General Estimated Blood Loss (mL): 10 Fluids: 800 mL of crystalloid. 1 g of IV Invanz at the start of the procedure. 30 mg of IM and 30 mg of IV Toradol at the end of the procedure. 1 g of IV Tylenol at the end of the procedure. Pathology: Specimen to pathology. Indications: History, physical exam, and CT scan consistent with acute appendicitis in a morbidly obese 28-year-old female. She is 6 feet tall 333 pounds. Findings: Acute appendicitis. The appendix was retrocecal in location. Very thick adipose tissue. Complications: None. Operative Summary: The patient was taken to the operating suite and placed in the operating table in a supine position. Following the induction of general anesthetic the abdomen was prepped and draped in a sterile fashion. A surgical timeout was done. The patient is morbidly obese. The appendix is high riding and retrocecal.. I chose to do a transverse incision higher than normally. A muscle-splitting incision would not have been possible. An oblique incision was made and carried through the thick subcutaneous tissue with electrocautery. The anterior rectus sheath was divided with electrocautery. The rectus muscle was transected with electrocautery. The posterior sheath and peritoneum were elevated and incised. They were transected the length of the incision with electrocautery. An Soto wound retractor was placed. There were no other palpable intra-abdominal abnormalities. The cecal and proximal right colonic attachments were taken down with electrocautery. This allowed the cecum and appendix to be rolled up into the operative field. The mesoappendix was transected by serially clamping, dividing and ligating the mesoappendix with 2-0 Vicryl ties. This was carried out to the base of the appendix. A straight clamp was placed across the base of the appendix. It was unclamped and moved distally. An 0 chromic suture was used to tie off the base of the appendix at the previously clamped site. The appendix was transected and removed from the operative field. The stump was cauterized and inverted into the cecum with a Z-plasty suture of 2-0 Vicryl. Hemostasis was assured. Appro priate irrigation was done.The intestinal contents were returned to the relative anatomic position and covered with the omentum. The posterior sheath and peritoneum were closed with running #1 Vicryl. The anterior sheath was closed with running #1 Vicryl. The wound was irrigated. Final irrigation was 1/4% Marcaine with epinephrine. It was allowed to sit in the wound for several minutes and then removed. Hemostasis was assured. Tara's fascia was closed with running 2-0 Vicryl. The wound was closed with surgical tamela followed by a sterile dressing. Patient tolerated the procedure well without complication. She was taken to the recovery room in stable condition. All counts were correct. Patient Problems - Patient Problem List (1) Acute appendicitis Current Visit: Yes Status: Acute Onset Date: 04/23/19 Priority: High Code(s): K35.80 - Unspecified acute appendicitis Category: Medical Procedure Codes - Surgical Procedures Primary Surgical Procedure: 46049 : Appendectomy (49067-63- increased procedural services)
[2019-04-23] MEDS ORDERED: fentaNYL Inj 100 MCG/2 ML VIAL IVP ONE (15:13)
[2019-04-23] MEDS ORDERED: PROMETHAZINE 25 MG/1 ML VIAL IM ONE (15:19)
[2019-04-23] MEDS ORDERED: ONDANSETRON 4 MG/2 ML VIAL IVP PRN ×2 (15:23→15:49)
[2019-04-23] MEDS ORDERED: LIDOCAINE W/ SODIUM BICARB 0.5 ML SYR SUBD PRN (15:23)
--- NOTE | 2019-04-23 15:26 | CRNA.PROGR ---
Anesthesia Time - Procedure/Recovery Time Start Date: 04/23/19 Anesthesia : Time In: 13:26 Anesthesia : Time Out: 15:05 - Other Weight: 145.15 kg Height: 6 ft Body Mass Index (BMI): 43.4 Physical Status: P3 Anesthesia Type: General Anesthesia : ET
[2019-04-23] MEDS ORDERED: BISACODYL 10 MG SUPPOSITORY RECTAL PRN (15:49)
[2019-04-23] MEDS ORDERED: MAGNESIUM 400 MG/5 ML - 30 ML (MILK OF MAGNESIA) PO PRN (15:49)
[2019-04-23] MEDS ORDERED: MORPHINE SULFATE 2 MG/1 ML IVP PRN (15:49)
[2019-04-23] MEDS: oxyCODONE-ACETAMINOPHEN 5-325 TAB PO PRN ×2 (16:20→21:31)
[2019-04-23] MEDS: KETOROLAC 30 MG/1 ML VIAL IVP SCH (20:00)
[2019-04-23] MEDS: DOCUSATE 100 MG CAPSULE PO SCH (20:02)
[2019-04-24] MEDS: KETOROLAC 30 MG/1 ML VIAL IVP SCH ×2 (01:46→08:34)
[2019-04-24] MEDS: oxyCODONE-ACETAMINOPHEN 5-325 TAB PO PRN ×2 (06:38→12:29)
[2019-04-24 07:51] VITALS: RESP 17
[2019-04-24] MEDS: DOCUSATE 100 MG CAPSULE PO SCH (08:34)
--- NOTE | 2019-04-24 11:40 | DCSUMMARY ---
Discharge Summary Admit Date: 04/23/19 Discharge Date: 04/24/19 Admitting Diagnosis: Acute appendicitis. Discharge Diagnosis: Acute appendicitis. Primary Surgery and Date: Open appendectomy on 04/23/2019 Hospital Course: Patient presented to the emergency room with history and physical and CT scan consistent with acute appendicitis. She underwent an open appendectomy. Her postoperative course has been unremarkable. Her pain is controlled. She is ambulatory. She is passing gas. She is voiding. She is tolerating a diet. She is ready to be discharged home for outpatient follow-up. Exam - Vitals Vital Signs: Vital Signs Temperature 97.1 F Temperature Source Temporal Artery Scan Pulse Rate [Pulse Oximeter] 60 Pulse Rate 62 Respiratory Rate 17 Blood Pressure [Right Arm] 115/75 Blood Pressure [Left Arm] 107/62 Blood Pressure 117/93 Pulse Ox 95 Oxygen Flow Rate 1 Oxygen Delivery Method Room Air Height 6 ft Weight 335 lb - General General Appearance: No Acute Distress, Morbidly Obese - Respiratory Respiratory Exam: POSITIVE: Clear to Auscultation - Bilaterally, Breathing Non Labored - Cardiovascular Cardiovascular Exam: POSITIVE: RRR, No Murmur - GI/Abdominal GI/Abdominal Exam: POSITIVE: Normal Bowel Sounds, Soft Additional GI/Abdominal Exam Details: Dressing is clean, dry, and intact. Abdomen is soft with normoactive bowel tones. Incisional tenderness only. - Neurological Neurological Exam: POSITIVE: Alert, Oriented x 3 - Psychiatric Psychiatric Exam: POSITIVE: Normal Affect, Normal Mood Data Peritnent Studies: CT scan showing acute appendicitis. Procedures: Open appendectomy on 04/23/2019. Patient Problems - Patient Problem List (1) Acute appendicitis Current Visit: Yes Status: Acute Onset Date: 04/23/19 Priority: High Comment: Status post open appendectomy. Doing very well. Ready to be discharged home for outpatient follow-up. Code(s): K35.80 - Unspecified acute appendicitis Qualifiers: Acute appendicitis type: with localized peritonitis Appendicitis gangrene presence: without gangrene Appendicitis perforation presence: without perforation Appendicitis abscess presence: without abscess Qualified Code(s): K35.30 - Acute appendicitis with localized peritonitis, without perforation or gangrene Category: Surgical
[2019-04-24 11:54] VITALS: BP 133/79; TEMP 97.2; O2SAT 91
[2019-04-24] MEDS ORDERED: Ertapenem Inj 1 GM in Sodium Chloride 0.9% 100 ML IV SCH (12:00)
== END 2019-04-24 12:37 | disposition home or self-care (01) ==
LOC: ER 09:18 → OR 13:09 → MED/SURG 13:09
PROVIDERS: ADMIT Surgery; ATTEND Surgery